=== PATIENT | female | born 1955 | race Caucasian/White ===

== ENCOUNTER → 2017-07-22 | Outpatient (CLI) | payer OTHER ==
[~2017-07-22] MED LIST: ALBU0.63 IH; ALBU18HF IH; AMIT50TA PO; CHOL4POW2 PO; CLON0.5T20 PO; CLON0.5T3 PO; DESO60GE TP; DEXL60CA2 PO; DEXT10TA38 PO; DULO60CA6 PO; ESZO1TAB8 PO; FAMO40TA57 PO; FLUT16SP2 NS; FLUT1DIS IH; FLUT1DIS3 IH; HYDR115S2 PO; LACT10SO26 PO; LEVO500T59 PO; LIDO20SO MM; LUBI8CAP4 PO; MAGN296S9 PO; METO5TAB55 PO; MONT4GRA PO; ONDA4TAB7 PO; PEG1POWD PO; POLY17PO5 PO; PRED1TAB PO; SUCR1TAB35 PO; TIOT18CA IH; TRIA15CR50 TP; XOPENEX1.25 MG/3 IH
== END | disposition home or self-care (01) ==
LOC: SURG 09:35
PROVIDERS: ATTEND Anesthesiology
DX: M54.12 Radiculopathy, cervical region (principal); M47.812 Spondylosis without myelopathy or radiculopathy, cervical region; M50.30 Other cervical disc degeneration, unspecified cervical region; J45.909 Unspecified asthma, uncomplicated; Z90.49 Acquired absence of other specified parts of digestive tract; Z90.710 Acquired absence of both cervix and uterus
CPT/HCPCS: 99204

== ENCOUNTER → 2017-09-16 | Outpatient (CLI) | payer OTHER ==
[~2017-09-16] MED LIST changes: +0.9 % SODIUM CHLORIDE 10 ML VIAL ONE; +CLON0.5T11 PO; -CLON0.5T3 PO; +DEXAMETHASONE SOD PHOS 4 MG/ML VIAL ONE; +IOHEXOL 300 MG/ML 50 ML VIAL. ONE; +LIDOCAINE 1% PF 30 ML VIAL. ONE
== END | disposition home or self-care (01) ==
LOC: SURG 13:40 → EDBD 13:45
PROVIDERS: ATTEND Anesthesiology
DX: M50.13 Cervical disc disorder with radiculopathy, cervicothoracic region (principal); M47.23 Other spondylosis with radiculopathy, cervicothoracic region; J45.909 Unspecified asthma, uncomplicated; K21.9 Gastro-esophageal reflux disease without esophagitis; Z88.5 Allergy status to narcotic agent; Z90.710 Acquired absence of both cervix and uterus; Z90.721 Acquired absence of ovaries, unilateral; Z98.890 Other specified postprocedural states; Z79.899 Other long term (current) drug therapy; Z90.49 Acquired absence of other specified parts of digestive tract
CPT/HCPCS: 62321; J1100; J2001; Q9967

== ENCOUNTER → 2017-10-21 | Outpatient (CLI) | payer OTHER ==
[~2017-10-21] MED LIST changes: -0.9 % SODIUM CHLORIDE 10 ML VIAL ONE; +BUPIVACAINE MPF 0.25% 30 ML VIAL. ONE; -DEXAMETHASONE SOD PHOS 4 MG/ML VIAL ONE; -IOHEXOL 300 MG/ML 50 ML VIAL. ONE; -LIDOCAINE 1% PF 30 ML VIAL. ONE; +methylPREDNISolone ACETATE 40 MG/ML VIAL. ONE
== END | disposition home or self-care (01) ==
LOC: SURG 13:45
PROVIDERS: ATTEND Anesthesiology
DX: M79.1 Myalgia (principal); J45.909 Unspecified asthma, uncomplicated; K21.9 Gastro-esophageal reflux disease without esophagitis; Z88.5 Allergy status to narcotic agent
CPT/HCPCS: 20552; J1030; J3490; 20553

== ENCOUNTER → 2017-12-23 | Outpatient (CLI) | payer OTHER ==
[~2017-12-23] MED LIST changes: +0.9 % SODIUM CHLORIDE 10 ML VIAL ONE; -BUPIVACAINE MPF 0.25% 30 ML VIAL. ONE; +DEXAMETHASONE SOD PHOS 4 MG/ML VIAL ONE; +IOHEXOL 300 MG/ML 50 ML VIAL. ONE; +LIDOCAINE 1% PF 2 ML VIAL. ONE; -methylPREDNISolone ACETATE 40 MG/ML VIAL. ONE
== END | disposition home or self-care (01) ==
LOC: SURG 08:41
PROVIDERS: ATTEND Anesthesiology
DX: M47.22 Other spondylosis with radiculopathy, cervical region (principal); Z88.5 Allergy status to narcotic agent; K21.9 Gastro-esophageal reflux disease without esophagitis; J45.909 Unspecified asthma, uncomplicated; Z90.49 Acquired absence of other specified parts of digestive tract; Z90.710 Acquired absence of both cervix and uterus; Z98.890 Other specified postprocedural states; Z79.899 Other long term (current) drug therapy; Z87.01 Personal history of pneumonia (recurrent)
CPT/HCPCS: 62321; J1100; Q9967

== ENCOUNTER → 2018-05-26 | Outpatient (CLI) | payer OTHER ==
[~2018-05-26] MED LIST changes: -0.9 % SODIUM CHLORIDE 10 ML VIAL ONE; -ALBU18HF IH; +ALBU2.5V8 IH; -DEXAMETHASONE SOD PHOS 4 MG/ML VIAL ONE; -IOHEXOL 300 MG/ML 50 ML VIAL. ONE; -LIDOCAINE 1% PF 2 ML VIAL. ONE
== END | disposition home or self-care (01) ==
LOC: SURG 13:26
PROVIDERS: ATTEND Anesthesiology
DX: M47.22 Other spondylosis with radiculopathy, cervical region (principal); Z90.49 Acquired absence of other specified parts of digestive tract; Z90.710 Acquired absence of both cervix and uterus; Z79.899 Other long term (current) drug therapy
CPT/HCPCS: 99214

== ENCOUNTER → 2018-08-11 | Outpatient (CLI) | payer OTHER ==
--- NOTE | 2018-08-11 13:10 | CARD ---
MR#: [id number] Date of Study: 08/11/2018 Ordering Physician: DUNG GONZALEZ, Referring Physician: DUNG GONZALEZ, Tech: Betsy Panchal RDCS APPROVED REPORT EXAM: Two-dimensional and M-mode echocardiogram with Doppler and color Doppler. Other Information Quality : Good INDICATION Tachycardia 2D DIMENSIONS RVDd2.3 (2.9-3.5cm)Left Atrium(2D)3.1 (1.6-4.0cm) IVSd0.9 (0.7-1.1cm)Aortic Root(2D)2.8 (2.0-3.7cm) LVDd4.7 (3.9-5.9cm)LVOT Diameter2.2 (1.8-2.4cm) PWd0.9 (0.7-1.1cm)LVDs3.1 (2.5-4.0cm) FS (%) 33.6 %SV62.9 ml LVEF(%)60.0 (>50%) Aortic Valve AoV Peak Sunday.124.3cm/sAoV VTI23.0cm AO Peak GR.6.2mmHgLVOT Peak Sunday.116.2cm/s LVOT VTI 23.21cmAO Mean GR.4mmHg ARMANDO (VMAX)3.80uv1JCH (VTI)3.72cm2 Mitral Valve MV E Oeyraftr979.6cm/sMV DECEL SMSU344st MV A Bpsuxppt026.5cm/sE/A Ratio1.1 Tricuspid Valve TR P. Zxdnpgvy351qc/sRAP UDWUWSFH0dfLz TR Peak Gr.38yqYxGPAG21spBg Pulmonary Vein S1 Zsypuapn20.8cm/sD2 Hvfysucy14.0cm/s LEFT VENTRICLE The left ventricle is normal size. There is normal left ventricular wall thickness. The left ventricu lar systolic function is normal and the ejection fraction is within normal range. The Ejection Fracti on is 55-60%. There is normal LV segmental wall motion. The left ventricular diastolic function and f illing is normal for age. RIGHT VENTRICLE The right ventricle is normal size. The right ventricular systolic function is normal. ATRIA The left atrium size is normal. The right atrium size is normal. The interatrial septum is intact wit h no evidence for an atrial septal defect or patent foramen ovale as noted on 2-D or Doppler imaging. AORTIC VALVE The aortic valve is calcified but opens well. Doppler and Color Flow revealed no significant aortic r egurgitation. There is no significant aortic valvular stenosis. MITRAL VALVE The mitral valve is calcified but opens well. There is no evidence of mitral valve prolapse. There is no mitral valve stenosis. Doppler and Color-flow revealed mild mitral regurgitation. TRICUSPID VALVE The tricuspid valve is normal in structure and function. Doppler and Color Flow revealed trace tricus pid regurgitation. The PA pressure was estimated at 28 mmHg. There is no tricuspid valve stenosis. PULMONIC VALVE The pulmonic valve is not well visualized. Doppler and Color Flow revealed no pulmonic valvular regur gitation. There is no pulmonic valvular stenosis. GREAT VESSELS The aortic root is normal in size. The ascending aorta is not well seen. The IVC is normal in size an d collapses >50% with inspiration. PERICARDIAL EFFUSION There is no evidence of significant pericardial effusion. Critical Notification Critical Value: No <Conclusion> The left ventricular systolic function is normal and the ejection fraction is within normal range. Th e Ejection Fraction is 55-60%. There is normal LV segmental wall motion. Signed by : Robert Grayson, Electronically Approved : 08/11/2018 13:10:05
== END | disposition home or self-care (01) ==
LOC: ECHO 09:36
PROVIDERS: ATTEND Family Medicine
DX: I08.0 Rheumatic disorders of both mitral and aortic valves (principal)
CPT/HCPCS: 93306

== ENCOUNTER → 2018-08-11 | Outpatient (CLI) | payer OTHER ==
[~2018-08-11] MED LIST changes: +0.9 % SODIUM CHLORIDE 10 ML VIAL ONE; +DEXAMETHASONE SOD PHOS 10 MG/ML VIAL ONE; +IOHEXOL 300 MG/ML 50 ML VIAL. ONE; +LIDOCAINE 1% PF 30 ML VIAL. ONE
== END ==
LOC: SURG 10:20
PROVIDERS: ATTEND Anesthesiology
DX: M54.12 Radiculopathy, cervical region (principal); J45.909 Unspecified asthma, uncomplicated; Z87.01 Personal history of pneumonia (recurrent); K21.9 Gastro-esophageal reflux disease without esophagitis; J21.9 Acute bronchiolitis, unspecified; Z90.710 Acquired absence of both cervix and uterus; Z90.49 Acquired absence of other specified parts of digestive tract; Z98.890 Other specified postprocedural states; Z79.899 Other long term (current) drug therapy
CPT/HCPCS: 62321; J1100; J2001; Q9967

== ENCOUNTER → 2019-01-15 | Outpatient (CLI) | payer OTHER ==
[~2019-01-15] MED LIST changes: -0.9 % SODIUM CHLORIDE 10 ML VIAL ONE; -CLON0.5T11 PO; +CLON0.5T4 PO; -DEXAMETHASONE SOD PHOS 10 MG/ML VIAL ONE; +IOHEXOL 240 MG/ML 50ML VIAL. ONE; -IOHEXOL 300 MG/ML 50 ML VIAL. ONE; -LIDOCAINE 1% PF 30 ML VIAL. ONE
[2019-01-15] MEDS: IOHEXOL 300 MG/ML 75 ML VIAL. IV ONE (10:27)
--- NOTE | 2019-01-15 12:12 | RAD ---
PQRS Compliance Statement: One or more of the following individualized dose reduction techniques were utilized for this examination: 1. Automated exposure control 2. Adjustment of the mA and/or kV according to patient size 3. Use of iterative reconstruction technique CT abdomen/pelvis with contrast 01/15/2019 10:00 AM INDICATION: Abdominal pain for one month COMPARISON: None available TECHNIQUE: Multiple axial CT images of the abdomen and pelvis were obtained after the intravenous administration of 75 mL nonionic contrast. Coronal and sagittal reformats are provided. FINDINGS: There is subsegmental atelectasis at the lung bases. Heart size within normal limits. There is moderate size hiatal hernia with partial intrathoracic stomach. 8 mm simple cyst is identified in the caudate lobe. Liver, spleen, bilateral adrenal glands, and pancreas are normal in appearance. Gallbladder surgically absent. Abdominal aorta is normal in course and caliber. There are no pathologically enlarged lymph nodes in abdomen and pelvis. There is no free fluid or free intraperitoneal air. There is mild colonic diverticulosis. Oral contrast was administered. Opacified bowel loops demonstrate normal mucosal fold pattern. Small and large bowel are normal in caliber. There is no evidence for bowel obstruction. There are no pericolonic inflammatory changes. Appendix is not definitively visualized. No pericecal inflammatory changes are identified. The kidneys enhance symmetrically. There is no suspicious renal mass. There is no hydronephrosis. There are no suspected calculi within the kidneys, ureters or urinary bladder. Urinary bladder is within normal limits given degree of distention. No suspicious pelvic mass is identified. No suspicious osseous normality is identified. IMPRESSION: 1. Moderate-sized hiatal hernia. There is predominantly intrathoracic stomach. 2. Bibasilar subsegmental atelectasis. 3. Mild colonic diverticulosis. No bowel obstruction or inflammation. Electronically signed by: Liliam Patten MD (01/15/2019 12:10 PM) [id number]
== END | disposition home or self-care (01) ==
LOC: CT 08:52
PROVIDERS: ATTEND Family Medicine
DX: K44.9 Diaphragmatic hernia without obstruction or gangrene (principal); K76.89 Other specified diseases of liver; K57.30 Diverticulosis of large intestine without perforation or abscess without bleeding; J98.11 Atelectasis
CPT/HCPCS: 74177; Q9967

== ENCOUNTER → 2019-05-12 | Outpatient (CLI) | payer OTHER ==
[~2019-05-12] MED LIST changes: -IOHEXOL 240 MG/ML 50ML VIAL. ONE; +MAGN296S68 PO; -MAGN296S9 PO
--- NOTE | 2019-05-12 12:53 | RAD ---
EXAM: Dual energy x-ray absorptiometry (DEXA). HISTORY: Postmenopausal female presents for osteoporosis screening. COMPARISON: None. TECHNIQUE: Dual energy x-ray absorptiometry of the lumbar spine and right hip was performed. Calculation of bone mineral density based on standard deviations above or below the expected young adult normal value (T-score) was completed. FINDINGS: The average bone mineral density in the 1st through 4th lumbar vertebrae is 0.980 g/cmxcm, corresponding with a T-score of -1.7. The average total bone mineral density in the right hip is 0.86 g/cmxcm, corresponding with a T-score of -0.6. The average total bone mineral density in the right femoral neck is 0.767 g/cmxcm, corresponding with a T-score of -1.4. IMPRESSION: 1. Osteopenia measured at the lumbar spine and right femoral neck. 2. Normal bone mineral density measured for the total right hip. Note: Definitions established by the World Health Organization: 1. Normal: T-score is -1.0 or above. 2. Osteopenia: T-score is between -1.0 and -2.5 . 3. Osteoporosis: T-score is -2.5 or below. Electronically signed by: Daisy Brooks MD (05/12/2019 12:50 PM) [id number]
== END | disposition home or self-care (01) ==
LOC: DXRAD 11:09
PROVIDERS: ATTEND Physician Assistant
DX: M85.88 Other specified disorders of bone density and structure, other site (principal); N95.1 Menopausal and female climacteric states
CPT/HCPCS: 77080

== ENCOUNTER 2020-11-26 20:48 | Emergency (ER) | payer MEDICARE, OTHER ==
[~2020-11-26] VITALS: Ht 165.1 cm; Wt 80.0 kg
[~2020-11-26 20:48] MED LIST changes: -DULO60CA6 PO; +DULO60CA7 PO
[2020-11-26 20:56] VITALS: BP 155/103
--- NOTE | 2020-11-26 21:05 | PHYS DOC ---
Past History Past Medical History: Asthma, Other Past Surgical History: Appendectomy, Cholecystectomy, Hysterectomy, Oophorectomy, Other Additional Past Surgical Histo: esophagectomy, OPIUM Smoking: Non-smoker Alcohol Use: Rarely Drug Use: None Adult General Chief Complaint Chief Complaint: MECHANICAL FALL HPI HPI Patient is a pleasant 65-year-old female presenting for a fall. 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 There is no loss of co nsciousness, this was not observed. Patient noticed a small hematoma superior to right eyebrow and had focal pain that was nonradiating in nature. States pain was not significant but she was concerned that she is currently on Plavix therapy. She has had no other concerning signs or symptoms such as blurred vision, neck stiffness, chest pain, ripping or tearing sensation in chest, shortness of breath, abdominal pain, motor or sensory or neuro function changes Review of Systems Review of Systems Fourteen body systems of review of systems have been reviewed. See HPI for pertinent positives and negative responses, other beaver all other systems are negative, non-pertinent or non-contributory Allergies Allergies Allergies Coded Allergies Type Severity Reaction Last Updated Verified codeine Allergy Unknown 11/15/15 Yes morphine Allergy Unknown 11/26/20 Yes Physical Exam Physical Exam Constitutional: Well developed, well nourished, no acute distress, non-toxic appearance. HENT: Normocephalic, there is a 1 x 1 cm hematoma that is well-appearing over superior portion of right eyebrow without any palpable abnormalities, midface stable, bilateral external ears normal, oropharynx moist, no oral exudates, nose normal. Eyes: PERRLA, EOMI, conjunctiva normal, no discharge. Neck: Normal range of motion, no tenderness, supple, no stridor. Cardiovascular: Heart rate regular, sinus rhythm, no murmurs rubs or gallops Lungs & Thorax: Bilateral breath sounds clear to auscultation Abdomen: Bowel sounds normal, soft, no tenderness, no masses, no pulsatile masses. Nonsurgical abdomen, no peritoneal signs Skin: Warm, dry, no erythema, no rash. Back: No tenderness, no CVA tenderness. Extremities: No tenderness, no cyanosis, no clubbing, ROM intact, no edema. Neurologic: Alert and oriented X 3, cranial nerves II through XII intact, normal motor & sensory function, no focal deficits noted. Psychologic: Affect normal, judgement normal, mood normal. Current Patient Data Vital Signs Vital Signs Date Time Temp Pulse Resp B/P (MAP) Pulse Ox O2 Delivery O2 Flow Rate FiO2 11/26/20 20:56 98.2 101 20 155/103 (120) 96 EKG EKG [] Radiology/Procedures Radiology/Procedures EXAMINATION: CT head and cervical spine without IV contrast INDICATION:65 years, Female, fall, right for head with neck pain. COMPARISON: None TECHNIQUE: Spiral acquisition of contiguous images from the skull base to the vertex were obtained. CT of the cervical spine was obtained using contiguous spiral imaging from the skull base to the upper thoracic level. Sagittal and coronal 2D reformatted series were provided by the technologist. Soft tissue and bone window algorithms were reviewed. Exposure: One or more of the following individualized dose reduction techniques were utilized for this examination: 1. Automated exposure control 2. Adjustment of the mA and/or kV according to patient size 3. Use of iterative reconstruction technique. FINDINGS: CT HEAD: The ventricles are normal in size. Neither mass, midline shift, intracranial hemorrhage, acute/subacute ischemic changes, nor extraaxial fluid collections are seen. The brain parenchyma is normal in appearance. The paranasal sinuses, mastoid air cells, and middle ears are clear. The orbital contents appear within normal limits. Small right anterior frontal scalp hematoma. CT CERVICAL SPINE: Grade I anterolisthesis of C5 over C6. Neither acute fracture, subluxation, nor traumatic spondylolisthesis is seen. Chronic nonunited fracture in the left posterior C1 arch. The vertebral body heights are preserved. Multilevel degener ative changes in the spine with disc space narrowing. Mild multilevel bilateral facet and uncovertebral arthropathy. There is no evidence of a large intraspinal hematoma. The prevertebral and paravertebral soft tissues are within normal limits. IMPRESSION: CT HEAD: 1. No evidence of acute intracranial abnormality. 2. Small right anterior frontal scalp hematoma. CT CERVICAL SPINE: 1. No evidence of acute fracture or traumatic spondylolisthesis of the cervical spine. 2. Chronic appearing nonunited fracture in the left posterior C1 arch. Electronically signed by: Dionne Mccray MD (11/26/2020 10:09 PM) [facility] Heart Score C/O Chest Pain: No Risk Factors: Risk Factors: DM, Current or recent (<one month) smoker, HTN, HLP, family history of CAD, obesity. Risk Scores: Risk Factors: DM, Current or recent (<one month) smoker, HTN, HLP, family history of CAD, obesity. Course & Med Decision Making Course & Med Decision Making ABCs unremarkable HPI physical exam and comprehensive ER work-up nonconcerning for any emergent or surgical issues CT images reviewed with patient with good understanding. Small hematoma that will resolve with supportive care. History of prior C1 arch fracture from distant fall per patient Continued supportive care practices, concussion protocol and close PCP follow-up advised. Strict return precautions were discussed with understanding verbalized by patient. All questions and concerns addressed prior to ER departure Dragon Disclaimer Dragon Disclaimer This electronic medical record was generated, in whole or in part, using a voice recognition dictation system. Departure Departure: Impression: Primary Impression: Closed head injury without loss of consciousness Additional Impression: History of cervical fracture Disposition: HOME / SELF CARE / HOMELESS Condition: STABLE Referrals: DUNG GONZALEZ MD (PCP) Additional Instructions: As discussed prior to ER departure, your vitals, physical exam and comprehensive ER work-up consisting of CT head and neck imaging were nonconcerning for any emergent or surgical issues There is no indication for further diagnostic work-up and/or need for hospitalization today Your hematoma on front of forehead should resolve with continued supportive care practices that should include ice and Tylenol It is imperative that you contact your primary care physician first thing in the morning to review ER visit today and need for close outpatient follow-up. Any concerning signs or symptoms present prior to outpatient follow-up do not hesitate to come back for repeat evaluation It was a pleasure to take care of you and I wish you the best going forward Problem Qualifiers LORI DUNCAN DO Nov 26, 2020 21:05
--- NOTE | 2020-11-26 22:12 | RAD ---
EXAMINATION: CT head and cervical spine without IV contrast INDICATION:65 years, Female, fall, right for head with neck pain. COMPARISON: None TECHNIQUE: Spiral acquisition of contiguous images from the skull base to the vertex were obtained. C T of the cervical spine was obtained using contiguous spiral imaging from the skull base to the upper thoracic level. Sagittal and coronal 2D reformatted series were provided by the technologist. Soft t issue and bone window algorithms were reviewed. Exposure: One or more of the following individualized dose reduction techniques were utilized for thi s examination: 1. Automated exposure control 2. Adjustment of the mA and/or kV according to patient size 3. Use of iterative reconstruction technique. FINDINGS: CT HEAD: The ventricles are normal in size. Neither mass, midline shift, intracranial hemorrhage, acute/subacu te ischemic changes, nor extraaxial fluid collections are seen. The brain parenchyma is normal in wei earance. The paranasal sinuses, mastoid air cells, and middle ears are clear. The orbital contents ap pear within normal limits. Small right anterior frontal scalp hematoma. CT CERVICAL SPINE: Grade I anterolisthesis of C5 over C6. Neither acute fracture, subluxation, nor traumatic spondylolis thesis is seen. Chronic nonunited fracture in the left posterior C1 arch. The vertebral body heights are preserved. Multilevel degenerative changes in the spine with disc space narrowing. Mild multileve l bilateral facet and uncovertebral arthropathy. There is no evidence of a large intraspinal hematoma . The prevertebral and paravertebral soft tissues are within normal limits. IMPRESSION: CT HEAD: 1. No evidence of acute intracranial abnormality. 2. Small right anterior frontal scalp hematoma. CT CERVICAL SPINE: 1. No evidence of acute fracture or traumatic spondylolisthesis of the cervical spine. 2. Chronic appearing nonunited fracture in the left posterior C1 arch. Electronically signed by: Dionne Mccray MD (11/26/2020 10:09 PM) [facility]
== END 2020-11-26 22:25 | disposition home or self-care (01) ==
LOC: ER 20:48
DX: S00.11XA Contusion of right eyelid and periocular area, initial encounter (principal); S00.03XA Contusion of scalp, initial encounter; J45.909 Unspecified asthma, uncomplicated; Z88.5 Allergy status to narcotic agent; W17.89XA Other fall from one level to another, initial encounter; Y93.89 Activity, other specified; Y92.89 Other specified places as the place of occurrence of the external cause; Y99.8 Other external cause status
CPT/HCPCS: 70450; 72125; 99285-25

== ENCOUNTER → 2021-01-08 | Outpatient (CLI) | payer MEDICARE, OTHER ==
--- NOTE | 2021-01-08 16:22 | RAD ---
BILATERAL DIGITAL SCREENING 2-D MAMMOGRAM INDICATION: Routine screening. COMPARISON: 11/03/2017, 11/15/2015 Interpretation was made using CAD. FINDINGS: Breast Density: There are scattered areas of fibroglandular density. RIGHT BREAST: No suspicious masses, calcifications or areas of architectural distortion are seen. Sta ble outer breast microcalcifications. LEFT BREAST: No suspicious masses, calcifications or areas of architectural distortion are seen. Stab le outer breast microcalcifications. IMPRESSION: 1. No imaging evidence of malignancy. ASSESSMENT: BI-RADS 2: Benign. RECOMMENDATION: Routine annual screening mammogram. The facility will notify the patient of the results via mail. Patient information will be entered int o the mammography reminder system with a target recall date for the next mammogram. A reminder letter will be generated by the facility. Electronically signed by: Parminder Leblanc MD (01/08/2021 4:20 PM) [id number]
== END ==
LOC: MAMMO 14:25
PROVIDERS: ATTEND Family Medicine
DX: Z12.31 Encounter for screening mammogram for malignant neoplasm of breast (principal)
CPT/HCPCS: 77063; 77067

== ENCOUNTER → 2021-06-15 | Outpatient (CLI) | payer MEDICARE, OTHER ==
[~2021-06-15] MED LIST changes: -CHOL4POW2 PO; +CHOL4POW6 PO
--- NOTE | 2021-06-15 10:31 | RAD ---
Exam: CT abdomen/pelvis without intravenous contrast Indication: Frequent UTIs over the past few months. Comparison: CT abdomen pelvis 01/15/2019 Technique: Helical CT imaging performed of the abdomen and pelvis without the use of intravenous cont rast. Sagittal and coronal reformats were obtained. One or more of the following individualized dose reduction techniques were utilized for this examinat ion: 1. Automated exposure control 2. Adjustment of the mA and/or kV according to patient size 3. Use of iterative reconstruction technique. Findings: Inherently limited evaluation without intravenous contrast. Lower chest: Large hiatal hernia. Heart is normal in size. Unchanged scarring or atelectasis in the l gayathri bases. Liver: The liver is enlarged measuring 20.5 cm. There is a 7 mm hypodensity in the caudate lobe, unch anged. Gallbladder/Biliary Tree: The gallbladder is surgically absent. Bile ducts are normal. Pancreas: Normal Spleen: Normal. Adrenal Glands: Normal. Kidneys/Ureters/Bladder: Kidneys are normal in size. No nephrolithiasis or hydronephrosis. Ureters ar e normal. The bladder is mildly distended without wall thickening. Reproductive Organs: The uterus is surgically absent. No adnexal mass. Stomach, small bowel, and colon: Large hiatal hernia. No small bowel obstruction. There is mild sigmo id diverticulosis. The appendix is not clearly identified. Vasculature: No aortic aneurysm. Mild calcified aortic atherosclerosis. Lymph Nodes: No lymphadenopathy. Peritoneum and retroperitoneum: No free fluid or free air. Bones: No acute osseous abnormality. IMPRESSION: 1. No urolithiasis or hydronephrosis. 2. Large hiatal hernia. 3. Mild hepatomegaly. Electronically signed by: Elda Murray MD (06/15/2021 10:29 AM) [id number]
== END ==
LOC: CT 07:37
PROVIDERS: ATTEND Family Medicine
DX: R16.0 Hepatomegaly, not elsewhere classified (principal); K44.9 Diaphragmatic hernia without obstruction or gangrene; K57.30 Diverticulosis of large intestine without perforation or abscess without bleeding; I70.0 Atherosclerosis of aorta; N32.89 Other specified disorders of bladder; Z90.49 Acquired absence of other specified parts of digestive tract; R35.0 Frequency of micturition; Z90.710 Acquired absence of both cervix and uterus
CPT/HCPCS: 74176